=== PATIENT | female | born 1995 | race Caucasian/White ===

== ENCOUNTER 2017-12-10 21:04 | Emergency (ER) | payer SELFPAY, BC | END 2017-12-11 03:00 | disposition left against medical advice (07) | LOC: FTE 21:04 | DX: Z53.21 Procedure and treatment not carried out due to patient leaving prior to being seen by health care provider (principal) ==

== ENCOUNTER 2017-12-15 05:25 | Emergency (ER) | payer MEDICAID ==
[2017-12-15 06:48] LABS: URINE BLOOD (Dip) POC 3+ (NEGATIVE); URINE GLUCOSE (Dip) POC Negative (NEGATIVE); URINE KETONES (Dip) POC Negative (NEGATIVE); URINE LEUKOCYTE EST (Dip) POC 3+ (NEGATIVE); URINE NITRITE (Dip) POC Negative (NEGATIVE); URINE TOTAL PROTEIN POC 1+ (NEGATIVE)
[2017-12-15 06:48] LABS: URINE PH (Dip) POC 5.5 (5.0-8.5)
== END 2017-12-15 07:10 | disposition home or self-care (01) ==
LOC: FTE 05:25
DX: N39.0 Urinary tract infection, site not specified (principal)
CPT/HCPCS: 81003; 81025; 87591; 99283